=== PATIENT | female | born 1970 | race Caucasian/White ===

== ENCOUNTER → 2016-08-24 | Outpatient (CLI) | payer BC, OTHER ==
--- NOTE | 2016-08-26 09:07 | SLEEPCENT ---
DATE OF PROCEDURE: 08/24/2016 ORDERED BY: Radha Baker Nocturnal polysomnography was performed for re-evaluation of sleep in this patient who has accomplished significant weight loss. 8 hours and 5 minutes of data were reviewed. There were 440 minutes of sleep identified. Sleep latency was normal at 11 minutes. Rapid eye movement (REM) latency was normal at 58 minutes. Sleep architecture was good with 5 progressively lengthening REM periods appreciated. Overall sleep efficiency was 92.6%. The patient's electrocardiogram (EKG) showed a sinus rhythm with an average heart rate of 63 beats per minute. Electroencephalogram (EEG) showed normal waveforms for awake and sleep. There were only 3 respiratory events identified of 10 seconds in duration or greater for a normal apnea-hypopnea index of 0.4. Some snoring was appreciated and respiratory related arousals were seen 2.2 times per hour. There was minimal limb activity. IMPRESSION: Normal nocturnal polysomnography with snoring.
== END ==
LOC: M SLEEP 19:34
PROVIDERS: ATTEND Nurse Practitioner Adult Health
DX: G47.33 Obstructive sleep apnea (adult) (pediatric) (principal)

== ENCOUNTER → 2020-03-27 | Outpatient (CLI) | payer BC, OTHER ==
[~2020-03-27] MED LIST: CALC500C16 PO; IRON65TA2 PO; MULTCAP PO; VITA500T40 PO; VOLT1GEL15 TD
== END ==
LOC: M LABSMTC 09:40
PROVIDERS: ATTEND Anesthesiology
DX: Z01.812 Encounter for preprocedural laboratory examination (principal); Z20.828 Contact with and (suspected) exposure to other viral communicable diseases

== ENCOUNTER 2020-04-01 06:40 | Day surgery (SDC) | payer MEDICARE, BC, OTHER ==
[~2020-04-01] VITALS: Ht 149.9 cm; Wt 58.5 kg
[2020-04-01] MEDS ORDERED: NS 1,000 ML IV ONE (07:00)
[2020-04-01] MEDS ORDERED: LIDOCAINE 2% 100MG/5ML SDV (FOR ANES.) As Ordered ONE (07:04)
[2020-04-01] MEDS ORDERED: propofoL 200 MG/20 ML VIAL As Ordered ONE (07:04)
--- NOTE | 2020-04-01 08:05 | ROOR ---
Patient Name: Daylin Dietrich Procedure Date: 04/01/2020 7:28 AM Date of : 1970 Age: 49 Room: [facility] Gender: Female Note Status: Finalized Procedure: Upper GI endoscopy Indications: Follow-up of esophageal reflux, Follow-up of Yee's esophagus Providers: Julian Del Toro MD Referring MD: NHI ALFONSO MD Requesting Provider: Medicines: Monitored Anesthesia Care Complications: No immediate complications. Procedure: Pre-Anesthesia Assessment: - Prior to the procedure, a History and Physical was performed, and patient medications and allergies were reviewed. The patient is competent. The risks and benefits of the procedure and the sedation options and risks were discussed with the patient. All questions were answered and informed consent was obtained. Patient identification and proposed procedure were verified by the physician, the nurse and the anesthesiologist in the endoscopy suite. Mental Status Examination: alert and oriented. Airway Examination: normal oropharyngeal airway and neck mobility. Respiratory Examination: clear to auscultation. CV Examination: normal. Prophylactic Antibiotics: The patient does not require prophylactic antibiotics. Prior Anticoagulants: The patient has taken no previous anticoagulant or antiplatelet agents. ASA Grade Assessment: II - A patient with mild systemic disease. After reviewing the risks and benefits, the patient was deemed in satisfactory condition to undergo the procedure. The anesthesia plan was to use monitored anesthesia care (MAC). Immediately prior to administration of medications, the patient was re-assessed for adequacy to receive sedatives. The heart rate, respiratory rate, oxygen saturations, blood pressure, adequacy of pulmonary ventilation, and response to care were monitored throughout the procedure. The physical status of the patient was re-assessed after the procedure. The Endoscope was introduced through the mouth, and advanced to the proximal jejunum. The upper GI endoscopy was accomplished without difficulty. The patient tolerated the procedure well. Findings: The gastroesophageal junction was normal. Biopsies were taken with a cold forceps for histology. Estimated blood loss was minimal. A small hiatal hernia was present. Normal mucosa was found at the anastomosis. The examined jejunum was normal. Estimated blood loss: none. Impression: - Normal gastroesophageal junction. Biopsied. - Small hiatal hernia. - Normal mucosa was found in the anastomosis. - Normal examined jejunum. Recommendation: - Discharge patient to home (ambulatory). Procedure Code(s): --- Professional --- 00113, Esophagogastroduodenoscopy, flexible, transoral; with biopsy, single or multiple Diagnosis Code(s): --- Professional --- K22.70, Yee's esophagus without dysplasia K44.9, Diaphragmatic hernia without obstruction or gangrene K21.9, Gastro-esophageal reflux disease without esophagitis CPT copyright 2019 [employer]. All rights reserved. The codes documented in this report are preliminary and upon diver pumper review may be revised to meet current compliance requirements. Julian Del Toro MD Julian Del Toro MD 04/01/2020 8:04:55 AM Electronically signed by Julian Del Toro MD Number of Addenda: 0 Note Initiated On: 04/01/2020 7:28 AM Estimated Blood Loss: Estimated blood loss was minimal.
--- NOTE | 2020-04-01 08:09 | ROOR ---
Patient Name: Daylin Dietrich Procedure Date: 04/01/2020 7:28 AM Date of : 1970 Age: 49 Room: [facility] Gender: Female Note Status: Finalized Procedure: Colonoscopy Indications: Screening for colorectal malignant neoplasm Providers: Julian Del Toro MD Referring MD: NHI ALFONSO MD Requesting Provider: Medicines: Monitored Anesthesia Care Complications: No immediate complications. Procedure: Pre-Anesthesia Assessment: - Prior to the procedure, a History and Physical was performed, and patient medications and allergies were reviewed. The patient is competent. The risks and benefits of the procedure and the sedation options and risks were discussed with the patient. All questions were answered and informed consent was obtained. Patient identification and proposed procedure were verified by the physician, the nurse and the anesthesiologist in the endoscopy suite. Mental Status Examination: alert and oriented. Airway Examination: normal oropharyngeal airway and neck mobility. Respiratory Examination: clear to auscultation. CV Examination: normal. Prophylactic Antibiotics: The patient does not require prophylactic antibiotics. Prior Anticoagulants: The patient has taken no previous anticoagulant or antiplatelet agents. ASA Grade Assessment: II - A patient with mild systemic disease. After reviewing the risks and benefits, the patient was deemed in satisfactory condition to undergo the procedure. The anesthesia plan was to use monitored anesthesia care (MAC). Immediately prior to administration of medications, the patient was re-assessed for adequacy to receive sedatives. The heart rate, respiratory rate, oxygen saturations, blood pressure, adequacy of pulmonary ventilation, and response to care were monitored throughout the procedure. The physical status of the patient was re-assessed after the procedure. The Colonoscope was introduced through the anus and advanced to the cecum, identified by appendiceal orifice and ileocecal valve. The colonoscopy was performed without difficulty. The patient tolerated the procedure well. The quality of the bowel preparation was good. Findings: Hemorrhoids were found on perianal exam. There is no endoscopic evidence of diverticula, erythema, inflammation, mass or polyps in the entire colon. The exam was otherwise without abnormality. Impression: - Hemorrhoids found on perianal exam. - No specimens collected. Recommendation: - Discharge patient to home (ambulatory). - Repeat colonoscopy in 10 years for screening purposes. Procedure Code(s): --- Professional --- 19108, Colonoscopy, flexible; diagnostic, including collection of specimen(s) by brushing or washing, when performed (separate procedure) Diagnosis Code(s): --- Professional --- Z12.11, Encounter for screening for malignant neoplasm of colon K64.9, Unspecified hemorrhoids CPT copyright 2019 [employer]. All rights reserved. The codes documented in this report are preliminary and upon heating and ventilating drafter review may be revised to meet current compliance requirements. Julian Del Toro MD Julian Del Toro MD 04/01/2020 8:08:43 AM Electronically signed by Julian Del Toro MD Number of Addenda: 0 Note Initiated On: 04/01/2020 7:28 AM Estimated Blood Loss: Estimated blood loss: none. Estimated blood loss: none.
[2020-04-01 08:30] VITALS: BP 136/93
== END 2020-04-01 08:41 | disposition home or self-care (01) ==
LOC: M OPP 06:40
PROVIDERS: ATTEND Surgery
DX: Z12.11 Encounter for screening for malignant neoplasm of colon (principal); K64.8 Other hemorrhoids; K22.70 Barrett's esophagus without dysplasia; K44.9 Diaphragmatic hernia without obstruction or gangrene; K21.9 Gastro-esophageal reflux disease without esophagitis; M79.7 Fibromyalgia; Z79.899 Other long term (current) drug therapy; Z88.8 Allergy status to other drugs, medicaments and biological substances; Z98.84 Bariatric surgery status; Z86.14 Personal history of Methicillin resistant Staphylococcus aureus infection
CPT/HCPCS: 43239; 88305; G0121

== ENCOUNTER → 2021-05-28 | Outpatient (CLI) | payer MEDICARE, BC, OTHER | LOC: M WHC 13:57 | PROVIDERS: ATTEND Internal Medicine | DX: Z12.31 Encounter for screening mammogram for malignant neoplasm of breast (principal) ==

== ENCOUNTER → 2022-03-09 | Outpatient (CLI) | payer MEDICARE, BC, OTHER | LOC: M PLAIMG 12:10 | PROVIDERS: ATTEND Nurse Practitioner Family | DX: M54.12 Radiculopathy, cervical region (principal) ==

== ENCOUNTER → 2022-05-30 | Outpatient (CLI) | payer MEDICARE, BC, OTHER | LOC: M WHC 07:25 | PROVIDERS: ATTEND Nurse Practitioner | DX: Z12.31 Encounter for screening mammogram for malignant neoplasm of breast (principal) ==

== ENCOUNTER → 2022-06-14 | Outpatient (CLI) | payer MEDICARE, BC, OTHER ==
[~2022-06-14] MED LIST changes: +PROHANCE 279.3MG/ML 5ML VIAL ONE
== END ==
LOC: M PLAIMG 07:45
PROVIDERS: ATTEND Internal Medicine
DX: R47.9 Unspecified speech disturbances (principal); R90.82 White matter disease, unspecified; Q28.3 Other malformations of cerebral vessels
CPT/HCPCS: 70544; 70553; A9576

== ENCOUNTER → 2022-08-26 | Outpatient (REF) | payer MEDICARE, BC, OTHER ==
[~2022-08-26] MED LIST changes: -PROHANCE 279.3MG/ML 5ML VIAL ONE
== END ==
LOC: M SFHCDERM 17:43
PROVIDERS: ATTEND Nurse Practitioner Family
DX: L57.0 Actinic keratosis (principal); L57.8 Other skin changes due to chronic exposure to nonionizing radiation

== ENCOUNTER → 2024-06-19 | Outpatient (REF) | payer MEDICARE, BC, OTHER | LOC: M SFHCDERM 17:24 | PROVIDERS: ATTEND Physician Assistant | DX: C44.519 Basal cell carcinoma of skin of other part of trunk (principal) ==